=== PATIENT | male | born 1950 | race Caucasian/White ===

== ENCOUNTER → 2017-09-27 | Outpatient (CLI) | payer MEDICARE, OTHER ==
[~2017-09-27] MED LIST: ALTOPREV20 M1 PO; ASPIRIN EC325 M1 PO; ASPIRIN EC81 M1 PO; ASPIRIN325 PO; CATAPRES0.2 MG PO; CENTRUM SILVER1 EAC2 PO; COLACE100 MG PO; COREG6.25 MG PO; COUMADIN 10MG T10 M1 PO; COUMADIN 5 MG TA5 M1 PO; CRESTOR10 MG; CRESTOR10 MG PO; DIABETA 5MG TABL5 MG PO; DILTIAZEM 24HR180 M1 PO; DILTIAZEM ER360 MG PO; FISH OIL 1,001000 M1 PO; HYDRALAZINE HC100 MG PO; IPRAT-ALBUT 0.5-3 ML IH; K-DUR 20 MEQ T20 MEQ PO; KLOR-CON 10 ER10 MEQ PO; LANTUS SUBQ; LASIX 40 MG TAB40 M1 PO; LEVAQUIN 750 M750 MG PO; LEVEMIR SUBQ; LIORESAL 10 MG10 MG; LIPITOR10 MG PO; LORTAB 5-500 T1 EAC1 PO; METOLAZONE 2.52.5 M1 PO; MIRALAX17 GM PO; NEURONTIN 300300 M1; NITROSTAT0.4 MG SUBLING; NORCO 5-325 TA1 EACH PO; NOVOLOG100 UNIT/M SUBQ; POTASSIUM20 PO; PRAVASTATIN SOD20 MG PO; PREDNISONE 10 M10 M1 PO; PRINIVIL40 MG PO; SYMBICORT160 MCG/4. PO; VIBRAMYCIN 100100 M2 PO; VITAMIN B-122000 MCG PO; Warfarin PO
== END ==
LOC: M.CT 13:00
DX: I71.2 Thoracic aortic aneurysm, without rupture (principal); I25.10 Atherosclerotic heart disease of native coronary artery without angina pectoris; K57.30 Diverticulosis of large intestine without perforation or abscess without bleeding; I71.4 Abdominal aortic aneurysm, without rupture; R59.0 Localized enlarged lymph nodes; J98.11 Atelectasis; I70.0 Atherosclerosis of aorta; N20.0 Calculus of kidney; J98.4 Other disorders of lung; N40.0 Benign prostatic hyperplasia without lower urinary tract symptoms; M51.26 Other intervertebral disc displacement, lumbar region; M47.896 Other spondylosis, lumbar region; M25.78 Osteophyte, vertebrae; M48.061 Spinal stenosis, lumbar region without neurogenic claudication; I13.0 Hypertensive heart and chronic kidney disease with heart failure and stage 1 through stage 4 chronic kidney disease, or unspecified chronic kidney disease; N18.3 Chronic kidney disease, stage 3 (moderate); I50.33 Acute on chronic diastolic (congestive) heart failure; E11.22 Type 2 diabetes mellitus with diabetic chronic kidney disease; N17.9 Acute kidney failure, unspecified; J96.22 Acute and chronic respiratory failure with hypercapnia; I48.2 Chronic atrial fibrillation; E87.0 Hyperosmolality and hypernatremia; G47.33 Obstructive sleep apnea (adult) (pediatric); E66.01 Morbid (severe) obesity due to excess calories; Z68.41 Body mass index [BMI] 40.0-44.9, adult; E78.5 Hyperlipidemia, unspecified; E87.6 Hypokalemia; Z95.1 Presence of aortocoronary bypass graft; Z98.890 Other specified postprocedural states; Z86.79 Personal history of other diseases of the circulatory system

== ENCOUNTER → 2019-11-12 | Outpatient (CLI) | payer MEDICARE | LOC: M.ULTRA 09:42 | DX: I99.8 Other disorder of circulatory system (principal); I77.811 Abdominal aortic ectasia ==

== ENCOUNTER 2020-05-17 19:44 | Inpatient (IN) | payer MEDICARE ==
[~2020-05-17] VITALS: Ht 167.6 cm; Wt 118.3 kg
[2020-05-17 19:54] VITALS: BP 119/51
[2020-05-17] MEDS ORDERED: PROAIR HFA8.5 GM INH (20:00)
[2020-05-17] MEDS ORDERED: ALLOPURINOL 10100 M1 PO (20:01)
[2020-05-17] MEDS ORDERED: LIPITOR40 MG PO (20:01)
[2020-05-17] MEDS ORDERED: ANORO ELLIPTA1 EACH INH (20:01)
[2020-05-17] MEDS ORDERED: CLINDAGEL75 ML PO (20:02)
[2020-05-17] MEDS ORDERED: HYDRALAZINE HC100 MG PO (20:03)
[2020-05-17] MEDS ORDERED: MITIGARE0.6 MG PO (20:03)
[2020-05-17] MEDS ORDERED: TOPROL XL100 MG PO (20:03)
[2020-05-17] MEDS ORDERED: LASIX 40 MG TAB40 MG PO (20:03)
[2020-05-17] MEDS ORDERED: LEVEMIR100 UNIT/2 SUBQ (20:04)
[2020-05-17] MEDS ORDERED: METOLAZONE 5 MG5 MG PO (20:04)
[2020-05-17] MEDS ORDERED: JANTOVEN5 MG PO (20:05)
[2020-05-17] MEDS ORDERED: MYRBETRIQ25 MG PO (20:05)
[2020-05-17] MEDS ORDERED: TRAMADOL 50 MG50 MG PO (20:05)
[2020-05-17 21:35] LABS: BE 5.7 mmol/L (-2 to +3); PO2 77.4 mmHg (75.0-100.0); pH 7.357 (7.340-7.450)
[2020-05-17 21:37] LABS: PCO2 59.3 mmHg (35.0-45.0)
[2020-05-17 22:02] LABS: CALCIUM 8.6 mg/dL (8.5-10.1); CREATININE 3.9 mg/dL (0.6-1.3)
[2020-05-17 22:11] LABS: INR ND; PROTIME ND Seconds (9.20-11.50)
[2020-05-17 22:12] LABS: APTT ND Seconds (25.0-31.3)
[2020-05-17 22:13] LABS: ALBUMIN 3.2 g/dL (3.4-5.0); MAGNESIUM 2.6 mg/dL (1.8-2.4); TOTAL BILIRUBIN 0.5 mg/dL (<0.1-1.0); TOTAL PROTEIN 7.5 g/dL (6.4-8.2)
[2020-05-17 23:00] LABS: HEMOGLOBIN 10.6 gm/dL (14.0-18.0); MCH 26.5 pg (26.0-34.0); MCV 82.7 fL (80.0-100.0); MPV 7.8 fl. (7.2-11.1); NUCLEATED RBCS 0 /100WBC; PLATELET COUNT* 213 thou/uL (150-400); RBC 3.99 mil/uL (4.50-6.00); RDW-CV 17.9 % (10.5-14.5); WBC 10.3 thou/uL (4.0-11.0)
[2020-05-17 23:11] LABS: APTT 40.1 Seconds (25.0-31.3); INR 2.1; PROTIME 20.7 Seconds (9.20-11.50)
[2020-05-17 23:23] LABS: ABSOLUTE NEUTROPHILS 8.9 thou/uL (1.6-8.1); PLATELET ESTIMATE ADEQUATE
[2020-05-17 23:24] LABS: ABSOLUTE EOSINOPHILS 0.1 thou/uL (0.0-0.7); ABSOLUTE LYMPHOCYTES 0.9 thou/uL (0.8-5.3); ABSOLUTE MONOCYTES 0.4 thou/uL (0.0-1.2); ANISOCYTOSIS 1+; POLYCHROMASIA Occasional
[2020-05-18] VITALS (8 sets, daily range): BP systolic 114–167; BP diastolic 47–67
[2020-05-18 01:18] LABS: URINE BILIRUBIN NEGATIVE (Negative); URINE BLOOD NEGATIVE (Negative); URINE CLARITY CLEAR; URINE COLOR YELLOW; URINE GLUCOSE-RANDOM NEGATIVE (Negative); URINE KETONES NEGATIVE (Negative); URINE LEUKOCYTES-REFLEX NEGATIVE (Negative); URINE NITRITE-REFLEX NEGATIVE (Negative); URINE PROTEIN 1+ (Negative); URINE UROBILINOGEN 0.2 E.U./dl (0.2-1.0)
--- NOTE | 2020-05-18 08:24 | EKG ---
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
--- NOTE | 2020-05-18 16:07 | 2DMMODE ---
[place] [address] 2 D/M-MODE ECHOCARDIOGRAM Name: JENNYFERLAM Kenny Room: [place] [address] ADM IN [facility]#: [id number] Admission: 05/17/20 Attend Phys: Yrn Martinez Discharge: Date of : 46 Date of Service: 05/18/20 1607 Report #: [id number] THIS REPORT FOR: cc: Carol Soriano Angela Jo RNP Blick, David R. MD [facility] ~ APPROVED REPORT Study performed: 05/18/2020 10:47:53 EXAM: Comprehensive 2D, Doppler, and color-flow Echocardiogram Patient Location: In-Patient Room #: er Status: routine BSA: 2.19 HR: 59 bpm BP: 166/65 mmHg Rhythm: Atrial Fibrillation Other Information Study Quality: Good Indications Dyspnea 2D Dimensions LVOT Diam: 21.21 (18-24mm) LVDd: 45.52 mm PWd: 12.30 (7-11mm) Ascending Ao: 35.50 (22-36mm) LVDs: 28.32 (25-40mm) Aortic Root: 36.90 mm Volumes Left Atrial Volume (Systole) LA ESV Index: 36.10 mL/m2 Aortic Valve AoV Peak Chidi.: 2.10 m/s AO Peak Gr.: 17.68 mmHg LVOT Max P.01 mmHg AO Mean Gr.: 9.92 mmHg LVOT Mean P.94 mmHg LVOT Max V: 1.00 m/s AO V2 VTI: 43.64 cm LVOT Mean V: 0.64 m/s ISAAC (VTI): 1.69 cm2 LVOT V1 VTI: 20.86 cm AI [place]: 2.44 m/s2 [place] [address] 2 D/M-MODE ECHOCARDIOGRAM Name: LAM BURGER Room: [address] IN [facility]#: [id number] Admission: 05/17/20 Attend Phys: Yrn Martinez Discharge: Date of : 46 Date of Service: 05/18/20 1607 Report #: [id number] AI PHT: 372.64 ms Mitral Valve MV Mean Gr.: 2.47 mmHg MV Decel. Time: 199.44 ms MV PHT: 57.84 ms MVA (PHT): 3.80 cm2 TDI Medial E' Chidi.: 0.06 m/s Lateral E' Chidi.: 0.08 m/s Pulmonary Valve PV Peak Chidi.: 0.88 m/s PV Peak Gr.: 3.10 mmHg Left Ventricle The left ventricle is normal size. There is normal LV segmental wall motion. Mild concentric left ventricular hypertrophy. Left ventricular systolic function is normal. The left ventricular ejection fraction is within the normal range. LVEF is 55-60%. This study is not technically sufficient to allow evaluation of the LV diastolic function due to atrial fibrillation. Right Ventricle The right ventricle is normal size. The right ventricular systolic function is normal. Atria Left atrium is mildly dilated. The right atrium size is normal. Aortic Valve Aortic valve is calcified. Trace aortic regurgitation. Mild aortic stenosis. Mitral Valve Moderate mitral annular calcification. There is no mitral valve regurgitation noted. No evidence of mitral valve stenosis. Tricuspid Valve The tricuspid valve is normal in structure. Unable to assess PA pressure. Trace tricuspid regurgitation. Pulmonic Valve The pulmonary valve is normal in structure. There is no pulmonic [place] [address] 2 D/M-MODE ECHOCARDIOGRAM Name: JENNYFERLAM Kenny Room: [address] IN [facility]#: [id number] Admission: 05/17/20 Attend Phys: Yrn Martinez Discharge: Date of : 46 Date of Service: 05/18/20 1607 Report #: [id number] Great Vessels The aortic root is normal in size. IVC is normal in size and collapses >50% with inspiration. Pericardium There is no pericardial effusion. <Conclusion> Mild concentric left ventricular hypertrophy. LVEF is 55-60%. Left atrium is mildly dilated. Mild aortic stenosis. <ELECTRONICALLY SIGNED> By: Miguel An MD, FACC 05/18/201606 06 06 Miguel An MD, FACC /INF
[2020-05-18] MEDS ORDERED: DERMACINRX5000 UNIT PO (18:51)
[2020-05-18] MEDS ORDERED: TOPROL XL100 MG PO (18:54)
[2020-05-19] VITALS: BP 137/53
[2020-05-19 04:00] VITALS: BP 122/82
[2020-05-19 04:56] LABS: HEMATOCRIT 30.2 % (42.0-52.0); HEMOGLOBIN 9.7 gm/dL (14.0-18.0); MCH 26.5 pg (26.0-34.0); MCHC 32.2 g/dL (28.0-37.0); MCV 82.5 fL (80.0-100.0); MPV 8.5 fl. (7.2-11.1); RBC 3.66 mil/uL (4.50-6.00); WBC 9.5 thou/uL (4.0-11.0)
[2020-05-19 05:16] LABS: INR 1.8; PROTIME 18.4 Seconds (9.20-11.50)
[2020-05-19 05:23] LABS: ALBUMIN 3.2 g/dL (3.4-5.0); CALCIUM 8.4 mg/dL (8.5-10.1); CREATININE 3.8 mg/dL (0.6-1.3); MAGNESIUM 2.3 mg/dL (1.8-2.4); TOTAL BILIRUBIN 0.5 mg/dL (<0.1-1.0); TOTAL PROTEIN 7.3 g/dL (6.4-8.2)
[2020-05-19 08:00] VITALS: BP 128/50
--- NOTE | 2020-05-19 09:50 | CON ---
[address] [address] CONSULTATION Name: BURGERLAM Cox Room: [address] IN .R.#: [id number] Admission: 05/17/20 Attend Phys: Yrn Osei, Discharge: Date of : 46 Report #: [id number] THIS REPORT FOR: //name// cc: Carol Soriano Angela Jo RNP ~ THIS REPORT FOR: //name// CC: Carol Osei DATE OF SERVICE: 05/18/2020 REASON FOR CONSULTATION: Chronic kidney disease. HISTORY OF PRESENT ILLNESS: The patient is a 69-year-old gentleman, very well known to me, follows with me in my office. He has chronic kidney disease stage 4. His creatinine around 3. This is his baseline. The patient presents with complaints of shortness of breath. He was seen by me couple of days ago. He was fluid overloaded. I increased his Lasix. Continue his metolazone. He is on Lasix 40 mg twice a day and metolazone 3 times a week, but despite of that he is still fluid overloaded and came with CHF, seen by requirements manager. Continue with metolazone and I will defer to Cardiology, on IV Lasix. He is on lisinopril. His creatinine is up to 3.9 from 2.7, so I will stop his lisinopril. He also has a history of atrial fibrillation, hyperlipidemia, CHF, diabetes mellitus type 2 and complex cyst in the left kidney, possibly cancer, he was referred to Urology multiple times, but has not seen an urologist yet. SOCIAL HISTORY: No tobacco or alcohol abuse. He used to smoke, but quit several years ago. He is , has two children. FAMILY HISTORY: Positive for CHF in mother and coronary artery disease in father. Father at age of 46 from a heart attack. REVIEW OF SYSTEMS: Positive for shortness of breath, , nocturia lower extremity edema. Rest of the systems negative. PHYSICAL EXAMINATION: GENERAL: Awake, alert, and oriented. He is a chronically ill-looking gentleman, overweight. VITAL SIGNS: Reviewed. NECK: Fatty. JVD is elevated. He has some bruises on the skin. CARDIOVASCULAR: Irregular rate. No rubs. ABDOMEN: Obese, soft. LOWER EXTREMITIES: 3+ [place] [address] CONSULTATION Name: LAM BURGER Room: [address]#: [id number] Admission: 05/17/20 Attend Phys: Yrn Osei, Discharge: Date of : 46 Report #: [id number] ASSESSMENT: 1. Fluid overload, CHF. Cardiology on the case, on IV Lasix. 2. Acute kidney injury on top of the chronic kidney disease, could be due to under perfusion of the kidney due to of fluid retention. I would like to stop his lisinopril for now. 3. Chronic kidney disease stage 4. 4. Chronic obstructive pulmonary disease. 5. Diabetes mellitus type 2. 6. Complex renal cyst. PLAN: 1. Diurese. 2. Follow labs. 3. He might require dialysis. <ELECTRONICALLY SIGNED> By: Camron Ramirez MD 05/19/20 0950 1129 1822Alexkayleigh Ramirez MD /[facility]
[2020-05-19 12:21] VITALS: BP 119/55
[2020-05-19 16:00] VITALS: BP 143/67
[2020-05-19 20:00] VITALS: BP 151/74
[2020-05-20] VITALS: BP 144/83
[2020-05-20 04:29] VITALS: BP 148/85
[2020-05-20 05:13] LABS: HEMATOCRIT 28.2 % (42.0-52.0); HEMOGLOBIN 9.1 gm/dL (14.0-18.0); MCHC 32.5 g/dL (28.0-37.0); MCV 83.1 fL (80.0-100.0); MPV 8.2 fl. (7.2-11.1); RBC 3.39 mil/uL (4.50-6.00); WBC 7.7 thou/uL (4.0-11.0)
[2020-05-20 05:22] LABS: INR 1.6; PROTIME 15.8 Seconds (9.20-11.50)
[2020-05-20 05:47] LABS: CREATININE 4.2 mg/dL (0.6-1.3); POTASSIUM 3.5 mmol/L (3.5-5.1); TOTAL BILIRUBIN 0.4 mg/dL (<0.1-1.0); TOTAL PROTEIN 6.4 g/dL (6.4-8.2)
[2020-05-20 07:30] VITALS: BP 146/74
[2020-05-20 11:30] VITALS: BP 138/58
[2020-05-20 14:38] LABS: BE 2.2 mmol/L (-2 to +3); PO2 68.8 mmHg (75.0-100.0); pH 7.313 (7.340-7.450)
[2020-05-20 14:42] LABS: PCO2 59.4 mmHg (35.0-45.0)
[2020-05-20 16:19] LABS: CALCIUM 8.2 mg/dL (8.5-10.1); POTASSIUM 3.7 mmol/L (3.5-5.1)
[2020-05-20 20:00] VITALS: BP 146/68
[2020-05-21] VITALS (29 sets, daily range): BP systolic 116–153; BP diastolic 47–76
[2020-05-21 05:18] LABS: HEMATOCRIT 29.5 % (42.0-52.0); HEMOGLOBIN 9.3 gm/dL (14.0-18.0); MCH 26.5 pg (26.0-34.0); MCHC 31.4 g/dL (28.0-37.0); MCV 84.2 fL (80.0-100.0); MPV 8.3 fl. (7.2-11.1); RBC 3.51 mil/uL (4.50-6.00); RDW-CV 17.9 % (10.5-14.5); WBC 8.5 thou/uL (4.0-11.0)
[2020-05-21 05:33] LABS: INR 1.5; PROTIME 15.6 Seconds (9.20-11.50)
[2020-05-21 05:39] LABS: ALBUMIN 3.1 g/dL (3.4-5.0); CALCIUM 8.5 mg/dL (8.5-10.1); CREATININE 4.3 mg/dL (0.6-1.3); MAGNESIUM 2.4 mg/dL (1.8-2.4); POTASSIUM 4.2 mmol/L (3.5-5.1); TOTAL BILIRUBIN 0.4 mg/dL (<0.1-1.0); TOTAL PROTEIN 7.2 g/dL (6.4-8.2)
[2020-05-21 10:17] LABS: PO2 65.5 mmHg (75.0-100.0); pH 7.423 (7.340-7.450)
[2020-05-21 10:26] LABS: PCO2 52.6 mmHg (35.0-45.0)
[2020-05-21 15:06] LABS: BE 6.3 mmol/L (-2 to +3); PCO2 41.4 mmHg (35.0-45.0); PO2 102.1 mmHg (75.0-100.0); pH 7.482 (7.340-7.450)
[2020-05-22] VITALS (46 sets, daily range): BP systolic 67–139; BP diastolic 22–69
[2020-05-22 04:25] LABS: HEMATOCRIT 30.7 % (42.0-52.0); HEMOGLOBIN 9.9 gm/dL (14.0-18.0); MCH 26.4 pg (26.0-34.0); MCHC 32.3 g/dL (28.0-37.0); MCV 81.8 fL (80.0-100.0); MPV 8.1 fl. (7.2-11.1); RBC 3.75 mil/uL (4.50-6.00); RDW-CV 17.9 % (10.5-14.5); WBC 9.4 thou/uL (4.0-11.0)
[2020-05-22 04:42] LABS: INR 1.9; PROTIME 18.9 Seconds (9.20-11.50)
[2020-05-22 04:43] LABS: CALCIUM 8.9 mg/dL (8.5-10.1); PHOSPHORUS* 2.8 mg/dL (2.5-4.9)
[2020-05-22 04:44] LABS: CREATININE 3.3 mg/dL (0.6-1.3); POTASSIUM 3.1 mmol/L (3.5-5.1)
[2020-05-22 10:49] LABS: PCO2 37.5 mmHg (35.0-45.0); PO2 111.1 mmHg (75.0-100.0); pH 7.496 (7.340-7.450)
[2020-05-22 22:06] LABS: HEPATITIS B SURFACE AG Negative (Negative)
[2020-05-23] VITALS (37 sets, daily range): BP systolic 105–175; BP diastolic 48–92
[2020-05-23 04:00] LABS: HEMATOCRIT 30.9 % (42.0-52.0); HEMOGLOBIN 9.8 gm/dL (14.0-18.0); MCH 26.1 pg (26.0-34.0); MCHC 31.9 g/dL (28.0-37.0); MPV 7.8 fl. (7.2-11.1); RBC 3.77 mil/uL (4.50-6.00); RDW-CV 17.8 % (10.5-14.5)
[2020-05-23 04:32] LABS: ALBUMIN 2.8 g/dL (3.4-5.0); CALCIUM 8.7 mg/dL (8.5-10.1); CREATININE 3.6 mg/dL (0.6-1.3); POTASSIUM 3.4 mmol/L (3.5-5.1); TOTAL BILIRUBIN 0.5 mg/dL (<0.1-1.0); TOTAL PROTEIN 6.9 g/dL (6.4-8.2)
[2020-05-23 05:30] LABS: BE 5.1 mmol/L (-2 to +3); PO2 69.8 mmHg (75.0-100.0)
[2020-05-23 05:50] LABS: PROTIME 20.2 Seconds (9.20-11.50)
--- NOTE | 2020-05-23 09:52 | EKG ---
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
[2020-05-23 12:41] LABS: BE 3.9 mmol/L (-2 to +3); PCO2 44.8 mmHg (35.0-45.0); pH 7.427 (7.340-7.450)
[2020-05-24] VITALS (22 sets, daily range): BP systolic 110–161; BP diastolic 44–80
[2020-05-24 03:51] LABS: INR 2.1; PROTIME 20.7 Seconds (9.20-11.50)
[2020-05-24 03:54] LABS: PHOSPHORUS* 5.8 mg/dL (2.5-4.9)
[2020-05-24 04:09] LABS: ABSOLUTE BASOPHILS 0.1 thou/uL (0.0-0.2); ABSOLUTE EOSINOPHILS 0.2 thou/uL (0.0-0.7); ABSOLUTE LYMPHOCYTES 1.2 thou/uL (0.8-5.3); ABSOLUTE MONOCYTES 1.4 thou/uL (0.0-1.2); ABSOLUTE NEUTROPHILS 11.6 thou/uL (1.6-8.1); BASOPHILS 0.6 %; EOSINOPHILS 1.4 %; HEMATOCRIT 35.5 % (42.0-52.0); HEMOGLOBIN 11.4 gm/dL (14.0-18.0); LYMPHOCYTES 8.2 %; MCH 26.1 pg (26.0-34.0); MCV 81.8 fL (80.0-100.0); MONOCYTES 9.6 %; MPV 8.2 fl. (7.2-11.1); NUCLEATED RBCS 0 /100WBC; PLATELET COUNT* 201 thou/uL (150-400); POLYS 80.2 %; RBC 4.35 mil/uL (4.50-6.00); RDW-CV 18.6 % (10.5-14.5); WBC 14.5 thou/uL (4.0-11.0)
[2020-05-24 05:19] LABS: ALBUMIN 3.3 g/dL (3.4-5.0); CALCIUM 8.9 mg/dL (8.5-10.1); CREATININE 3.5 mg/dL (0.6-1.3); MAGNESIUM 2.2 mg/dL (1.8-2.4); TOTAL BILIRUBIN 0.5 mg/dL (<0.1-1.0); TOTAL PROTEIN 7.4 g/dL (6.4-8.2)
[2020-05-25] VITALS (19 sets, daily range): BP systolic 73–138; BP diastolic 37–73
[2020-05-25 04:06] LABS: ABSOLUTE BASOPHILS 0.2 thou/uL (0.0-0.2); ABSOLUTE EOSINOPHILS 0.5 thou/uL (0.0-0.7); ABSOLUTE LYMPHOCYTES 1.2 thou/uL (0.8-5.3); ABSOLUTE MONOCYTES 1.1 thou/uL (0.0-1.2); BASOPHILS 1.4 %; EOSINOPHILS 3.7 %; HEMATOCRIT 32.8 % (42.0-52.0); HEMOGLOBIN 10.4 gm/dL (14.0-18.0); LYMPHOCYTES 9.5 %; MCH 26.2 pg (26.0-34.0); MCHC 31.7 g/dL (28.0-37.0); MCV 82.8 fL (80.0-100.0); MONOCYTES 8.2 %; MPV 7.6 fl. (7.2-11.1); NUCLEATED RBCS 0 /100WBC; PLATELET COUNT* 182 thou/uL (150-400); POLYS 77.2 %; RBC 3.97 mil/uL (4.50-6.00); RDW-CV 18.3 % (10.5-14.5); WBC 12.9 thou/uL (4.0-11.0)
[2020-05-25 04:25] LABS: INR 2.8; PROTIME 28.1 Seconds (9.20-11.50)
[2020-05-25 04:32] LABS: CALCIUM 8.9 mg/dL (8.5-10.1); MAGNESIUM 2.3 mg/dL (1.8-2.4); PHOSPHORUS* 6.7 mg/dL (2.5-4.9); POTASSIUM 3.8 mmol/L (3.5-5.1)
--- NOTE | 2020-05-25 12:08 | EEG ---
[address] [address] EEG STUDY REPORT Name: LAM BURGER Room: [address] IN ..#: [id number] Admission: 05/17/20 Attend Phys: Yrn Osei, Discharge: Date of : 46 Report #: [id number] THIS REPORT FOR: //name// CC: Carol Osei DATE OF SERVICE: 05/20/2020 This patient is being evaluated for tremor. This patient also has respiratory difficulty. EEG is being done to evaluate the patient for the possibility of encephalopathy or seizure. EEG was done by placing the electrode by standard 10-20 system of electrode placement. Both referential and sequential montages were used for recording. Background activity in this patient is about 7-8 Hz and 25 microvolt. Moderate amount of artifact is present. Photic stimulation is unremarkable. Throughout the record, no active epileptiform activity was noticed. IMPRESSION: This is an abnormal EEG because it is slow and poorly formed. That is a nonspecific finding, which can occur with encephalopathy, effect of psychotropic medication, dementia, etc. No active epileptiform activity was noticed during this record. Thank you very much for this referral. <ELECTRONICALLY SIGNED> By: Enzo Mendez MD 05/25/20 1208 1510 1519Enzo Mendez MD /nt
--- NOTE | 2020-05-25 12:08 | EEG ---
[facility] [address] [place] [address] EEG STUDY REPORT Name: BURGERLAM Cox Room: [address] IN .R.#: [id number] Admission: 05/17/20 Attend Phys: Yrn Osei, Discharge: Date of : 46 Report #: [id number] THIS REPORT FOR: //name// CC: Carol Osei DATE OF SERVICE: 05/21/2020 This patient's EEG was done and compared with one yesterday. EEG was done by placing the electrode by standard 10-20 system of electrode placement. Both referential and sequential montages were used for recording. Background activity is pretty disorganized and poorly formed. It is about 3 Hz and 15 microvolt. Photic stimulation is unremarkable. IMPRESSION: This is a severely abnormal EEG because it is very disorganized and poorly formed. There is a pronounced and distinct deterioration since yesterday. That can be because of medications including propofol, but that can also be because the patient has developed pretty significant encephalopathy since that time. Repeat EEG will be necessary to further evaluate the patient in that regard. Thank you very much for the referral. <ELECTRONICALLY SIGNED> By: Enzo Mendez MD 05/25/20 1208 1517 1522Pbiju Mendez MD /nt
[2020-05-26] VITALS: BP 108/66
[2020-05-26 04:00] VITALS: BP 128/43
[2020-05-26 05:37] LABS: ABSOLUTE BASOPHILS 0.1 thou/uL (0.0-0.2); ABSOLUTE EOSINOPHILS 0.4 thou/uL (0.0-0.7); ABSOLUTE LYMPHOCYTES 1.3 thou/uL (0.8-5.3); ABSOLUTE NEUTROPHILS 8.1 thou/uL (1.6-8.1); BASOPHILS 0.7 %; EOSINOPHILS 4.1 %; HEMATOCRIT 32.9 % (42.0-52.0); HEMOGLOBIN 10.7 gm/dL (14.0-18.0); LYMPHOCYTES 11.8 %; MCH 26.8 pg (26.0-34.0); MCHC 32.4 g/dL (28.0-37.0); MCV 82.7 fL (80.0-100.0); MONOCYTES 9.5 %; NUCLEATED RBCS 0 /100WBC; PLATELET COUNT* 168 thou/uL (150-400); POLYS 73.9 %; RBC 3.98 mil/uL (4.50-6.00); RDW-CV 17.9 % (10.5-14.5); WBC 10.9 thou/uL (4.0-11.0)
[2020-05-26 06:12] LABS: ALBUMIN 2.9 g/dL (3.4-5.0); CALCIUM 8.4 mg/dL (8.5-10.1); CREATININE 3.5 mg/dL (0.6-1.3); MAGNESIUM 2.1 mg/dL (1.8-2.4); PHOSPHORUS* 5.2 mg/dL (2.5-4.9); POTASSIUM 3.5 mmol/L (3.5-5.1); TOTAL BILIRUBIN 0.4 mg/dL (<0.1-1.0); TOTAL PROTEIN 7.2 g/dL (6.4-8.2)
[2020-05-26 07:30] VITALS: BP 147/36
[2020-05-26 09:19] LABS: INR 2.1; PROTIME 21.2 Seconds (9.20-11.50)
[2020-05-26 12:00] VITALS: BP 112/59
[2020-05-26 16:52] VITALS: BP 112/58
[2020-05-26 20:10] VITALS: BP 103/58
[2020-05-27] VITALS: BP 108/65
[2020-05-27 04:57] LABS: ABSOLUTE BASOPHILS 0.1 thou/uL (0.0-0.2); ABSOLUTE EOSINOPHILS 0.5 thou/uL (0.0-0.7); ABSOLUTE LYMPHOCYTES 1.2 thou/uL (0.8-5.3); ABSOLUTE NEUTROPHILS 7.1 thou/uL (1.6-8.1); BASOPHILS 0.7 %; EOSINOPHILS 5.3 %; HEMATOCRIT 29.8 % (42.0-52.0); HEMOGLOBIN 9.8 gm/dL (14.0-18.0); LYMPHOCYTES 12.4 %; MCH 26.9 pg (26.0-34.0); MCHC 32.8 g/dL (28.0-37.0); MONOCYTES 10.1 %; MPV 7.9 fl. (7.2-11.1); NUCLEATED RBCS 0 /100WBC; PLATELET COUNT* 163 thou/uL (150-400); POLYS 71.5 %; RBC 3.63 mil/uL (4.50-6.00); RDW-CV 17.7 % (10.5-14.5); WBC 9.9 thou/uL (4.0-11.0)
[2020-05-27 05:07] LABS: CREATININE 3.8 mg/dL (0.6-1.3); MAGNESIUM 2.1 mg/dL (1.8-2.4); PHOSPHORUS* 5.1 mg/dL (2.5-4.9); POTASSIUM 3.3 mmol/L (3.5-5.1)
[2020-05-27 07:55] VITALS: BP 145/63
[2020-05-27 15:51] VITALS: BP 134/70
[2020-05-27 19:40] VITALS: BP 122/64
[2020-05-28] VITALS: BP 98/59
[2020-05-28 04:00] VITALS: BP 107/59
[2020-05-28 04:32] LABS: ABSOLUTE BASOPHILS 0.1 thou/uL (0.0-0.2); ABSOLUTE EOSINOPHILS 0.4 thou/uL (0.0-0.7); ABSOLUTE LYMPHOCYTES 1.4 thou/uL (0.8-5.3); ABSOLUTE MONOCYTES 1.2 thou/uL (0.0-1.2); ABSOLUTE NEUTROPHILS 6.9 thou/uL (1.6-8.1); EOSINOPHILS 3.8 %; HEMATOCRIT 31.9 % (42.0-52.0); HEMOGLOBIN 10.6 gm/dL (14.0-18.0); LYMPHOCYTES 13.6 %; MCH 27.2 pg (26.0-34.0); MCHC 33.1 g/dL (28.0-37.0); MCV 82.1 fL (80.0-100.0); MONOCYTES 12.4 %; MPV 8.2 fl. (7.2-11.1); NUCLEATED RBCS 0 /100WBC; PLATELET COUNT* 175 thou/uL (150-400); POLYS 69.2 %; RBC 3.88 mil/uL (4.50-6.00); RDW-CV 17.9 % (10.5-14.5)
[2020-05-28 04:56] LABS: CALCIUM 8.2 mg/dL (8.5-10.1); CREATININE 3.5 mg/dL (0.6-1.3); POTASSIUM 3.8 mmol/L (3.5-5.1)
[2020-05-28 13:53] VITALS: BP 109/55
[2020-05-28 16:00] VITALS: BP 100/50
[2020-05-28 20:00] VITALS: BP 100/61
[2020-05-29] VITALS: BP 115/59
[2020-05-29 03:55] VITALS: BP 109/58
[2020-05-29 05:00] LABS: ALBUMIN 2.9 g/dL (3.4-5.0); CALCIUM 8.7 mg/dL (8.5-10.1); PHOSPHORUS* 5.1 mg/dL (2.5-4.9); POTASSIUM 3.9 mmol/L (3.5-5.1)
[2020-05-29 05:14] LABS: CREATININE 4.5 mg/dL (0.6-1.3)
[2020-05-29 08:10] VITALS: BP 100/67
[2020-05-29 12:00] VITALS: BP 141/66
[2020-05-29 17:30] VITALS: BP 131/64
[2020-05-29 19:40] VITALS: BP 116/59
[2020-05-30 00:37] VITALS: BP 116/64
[2020-05-30 04:00] VITALS: BP 123/40
[2020-05-30 05:06] LABS: ALBUMIN 2.8 g/dL (3.4-5.0); CALCIUM 8.3 mg/dL (8.5-10.1); CREATININE 5.3 mg/dL (0.6-1.3); PHOSPHORUS* 4.6 mg/dL (2.5-4.9); POTASSIUM 3.9 mmol/L (3.5-5.1)
[2020-05-30 07:30] VITALS: BP 108/58
[2020-05-30 17:14] VITALS: BP 146/61
[2020-05-30 20:00] VITALS: BP 124/61
[2020-05-31] VITALS (8 sets, daily range): BP systolic 97–142; BP diastolic 40–80
[2020-05-31 04:39] LABS: ABSOLUTE BASOPHILS 0.1 thou/uL (0.0-0.2); ABSOLUTE EOSINOPHILS 0.2 thou/uL (0.0-0.7); ABSOLUTE LYMPHOCYTES 0.6 thou/uL (0.8-5.3); ABSOLUTE MONOCYTES 0.7 thou/uL (0.0-1.2); ABSOLUTE NEUTROPHILS 7.3 thou/uL (1.6-8.1); BASOPHILS 0.8 %; EOSINOPHILS 1.7 %; HEMATOCRIT 35.2 % (42.0-52.0); HEMOGLOBIN 11.4 gm/dL (14.0-18.0); MCH 26.8 pg (26.0-34.0); MCHC 32.5 g/dL (28.0-37.0); MCV 82.5 fL (80.0-100.0); MONOCYTES 8.1 %; MPV 8.2 fl. (7.2-11.1); NUCLEATED RBCS 0 /100WBC; PLATELET COUNT* 194 thou/uL (150-400); POLYS 82.4 %; RBC 4.26 mil/uL (4.50-6.00); RDW-CV 18.2 % (10.5-14.5); WBC 8.9 thou/uL (4.0-11.0)
[2020-05-31 05:05] LABS: ALBUMIN 3.3 g/dL (3.4-5.0); CALCIUM 8.8 mg/dL (8.5-10.1); TOTAL BILIRUBIN 0.6 mg/dL (<0.1-1.0); TOTAL PROTEIN 7.8 g/dL (6.4-8.2)
[2020-05-31 05:18] LABS: CREATININE 4.2 mg/dL (0.6-1.3); POTASSIUM 5.1 mmol/L (3.5-5.1)
[2020-06-01 00:27] VITALS: BP 97/61
[2020-06-01 04:00] VITALS: BP 115/52
[2020-06-01 07:49] VITALS: BP 135/78
[2020-06-01 12:29] VITALS: BP 124/64
[2020-06-01 16:09] VITALS: BP 115/54
[2020-06-01 20:20] VITALS: BP 95/43
[2020-06-02] VITALS: BP 108/46
[2020-06-02 04:00] VITALS: BP 105/58
[2020-06-02 08:00] VITALS: BP 138/64
[2020-06-02] MEDS ORDERED: HYDRALAZINE 2525 MG PO (09:07)
[2020-06-02] MEDS ORDERED: BUMEX2 MG PO (09:07)
[2020-06-02] MEDS ORDERED: ASPIR 8181 MG PO (09:07)
[2020-06-02] MEDS ORDERED: NEURONTIN 300M300 M2 PO (09:07)
[2020-06-02] MEDS ORDERED: RENVELA800 MG PO (09:07)
[2020-06-02 12:01] VITALS: BP 122/57
[2020-06-02 16:12] VITALS: BP 98/47
[2020-06-02 20:00] VITALS: BP 120/76
[2020-06-03] VITALS: BP 128/68
[2020-06-03 04:00] VITALS: BP 116/52
[2020-06-03 05:11] LABS: INR 1.1; PROTIME 10.9 Seconds (9.20-11.50)
[2020-06-03 08:00] VITALS: BP 115/49
== END 2020-06-03 18:22 | DRG 208 ==
LOC: M.ERS 19:44 → M.ICU 23:26 → M.TBA-ER 23:26 → M.2W 23:26 → M.ICU 05-21 09:24 → M.2W 05-25 18:28
PROVIDERS: Internal Medicine; Internal Medicine Critical Care Medicine; Internal Medicine Nephrology; Pediatrics; Personal Emergency Response Attendant; ADMIT Family Medicine; ATTEND Family Medicine
PROC: 5A09357 Assistance with Respiratory Ventilation, Less than 24 Consecutive Hours, Continuous Positive Airway Pressure (ICD-10-PCS; principal; 2020-05-18)
PROC: 5A09357 Assistance with Respiratory Ventilation, Less than 24 Consecutive Hours, Continuous Positive Airway Pressure (ICD-10-PCS; 2020-05-20)
PROC: 5A1945Z Respiratory Ventilation, 24-96 Consecutive Hours (ICD-10-PCS; 2020-05-21)
PROC: 0BH17EZ Insertion of Endotracheal Airway into Trachea, Via Natural or Artificial Opening (ICD-10-PCS; 2020-05-21)
PROC: 02HV33Z Insertion of Infusion Device into Superior Vena Cava, Percutaneous Approach (ICD-10-PCS; 2020-05-23)
PROC: B548ZZA Ultrasonography of Superior Vena Cava, Guidance (ICD-10-PCS; 2020-05-23)
PROC: B5181ZA Fluoroscopy of Superior Vena Cava using Low Osmolar Contrast, Guidance (ICD-10-PCS; 2020-05-23)
PROC: 5A09357 Assistance with Respiratory Ventilation, Less than 24 Consecutive Hours, Continuous Positive Airway Pressure (ICD-10-PCS; 2020-05-23)
PROC: 5A09357 Assistance with Respiratory Ventilation, Less than 24 Consecutive Hours, Continuous Positive Airway Pressure (ICD-10-PCS; 2020-05-24)
PROC: 5A09357 Assistance with Respiratory Ventilation, Less than 24 Consecutive Hours, Continuous Positive Airway Pressure (ICD-10-PCS; 2020-05-25)
PROC: 5A09357 Assistance with Respiratory Ventilation, Less than 24 Consecutive Hours, Continuous Positive Airway Pressure (ICD-10-PCS; 2020-05-26)
PROC: 5A09357 Assistance with Respiratory Ventilation, Less than 24 Consecutive Hours, Continuous Positive Airway Pressure (ICD-10-PCS; 2020-05-27)
PROC: 5A09357 Assistance with Respiratory Ventilation, Less than 24 Consecutive Hours, Continuous Positive Airway Pressure (ICD-10-PCS; 2020-05-28)
PROC: 5A09357 Assistance with Respiratory Ventilation, Less than 24 Consecutive Hours, Continuous Positive Airway Pressure (ICD-10-PCS; 2020-05-29)
PROC: 5A09357 Assistance with Respiratory Ventilation, Less than 24 Consecutive Hours, Continuous Positive Airway Pressure (ICD-10-PCS; 2020-05-30)
PROC: 0JH63XZ Insertion of Tunneled Vascular Access Device into Chest Subcutaneous Tissue and Fascia, Percutaneous Approach (ICD-10-PCS; 2020-05-31)
PROC: B5181ZA Fluoroscopy of Superior Vena Cava using Low Osmolar Contrast, Guidance (ICD-10-PCS; 2020-05-31)
PROC: B548ZZA Ultrasonography of Superior Vena Cava, Guidance (ICD-10-PCS; 2020-05-31)
PROC: 5A09357 Assistance with Respiratory Ventilation, Less than 24 Consecutive Hours, Continuous Positive Airway Pressure (ICD-10-PCS; 2020-05-31)
PROC: 02HV33Z Insertion of Infusion Device into Superior Vena Cava, Percutaneous Approach (ICD-10-PCS; 2020-05-31)
PROC: 5A09357 Assistance with Respiratory Ventilation, Less than 24 Consecutive Hours, Continuous Positive Airway Pressure (ICD-10-PCS; 2020-06-01)
PROC: 5A09357 Assistance with Respiratory Ventilation, Less than 24 Consecutive Hours, Continuous Positive Airway Pressure (ICD-10-PCS; 2020-06-02)
DX: J96.22 Acute and chronic respiratory failure with hypercapnia (principal); I50.33 Acute on chronic diastolic (congestive) heart failure; I13.0 Hypertensive heart and chronic kidney disease with heart failure and stage 1 through stage 4 chronic kidney disease, or unspecified chronic kidney disease; N17.9 Acute kidney failure, unspecified; N18.4 Chronic kidney disease, stage 4 (severe); I48.20 Chronic atrial fibrillation, unspecified; D68.59 Other primary thrombophilia; L03.116 Cellulitis of left lower limb; J91.8 Pleural effusion in other conditions classified elsewhere; J96.21 Acute and chronic respiratory failure with hypoxia; Z20.828 Contact with and (suspected) exposure to other viral communicable diseases; J44.9 Chronic obstructive pulmonary disease, unspecified; E11.22 Type 2 diabetes mellitus with diabetic chronic kidney disease; I25.10 Atherosclerotic heart disease of native coronary artery without angina pectoris; E78.5 Hyperlipidemia, unspecified; N28.89 Other specified disorders of kidney and ureter; I71.4 Abdominal aortic aneurysm, without rupture; Z96.653 Presence of artificial knee joint, bilateral; I71.2 Thoracic aortic aneurysm, without rupture; I65.29 Occlusion and stenosis of unspecified carotid artery; N28.1 Cyst of kidney, acquired; G47.33 Obstructive sleep apnea (adult) (pediatric); D64.9 Anemia, unspecified; Z79.82 Long term (current) use of aspirin; Z90.49 Acquired absence of other specified parts of digestive tract; Z95.5 Presence of coronary angioplasty implant and graft; Z98.42 Cataract extraction status, left eye; Z87.891 Personal history of nicotine dependence; Z82.49 Family history of ischemic heart disease and other diseases of the circulatory system; Z79.899 Other long term (current) drug therapy; Z95.1 Presence of aortocoronary bypass graft

== ENCOUNTER 2020-06-03 16:06 | Inpatient (IN) | payer MEDICARE ==
[~2020-06-03] VITALS: Ht 167.6 cm; Wt 103.6 kg
[~2020-06-03 16:06] MED LIST changes: +ALLOPURINOL 10100 M1 PO; +ANORO ELLIPTA1 EACH INH; +ASPIR 8181 MG PO; +BUMEX2 MG PO; +CLINDAGEL75 ML PO; +DERMACINRX5000 UNIT PO; +HYDRALAZINE 2525 MG PO; +JANTOVEN5 MG PO; +LASIX 40 MG TAB40 MG PO; +LEVEMIR100 UNIT/2 SUBQ; +LIPITOR40 MG PO; +METOLAZONE 5 MG5 MG PO; +MITIGARE0.6 MG PO; +MYRBETRIQ25 MG PO; +NEURONTIN 300M300 M2 PO; +PROAIR HFA8.5 GM INH; +RENVELA800 MG PO; +TOPROL XL100 MG PO; +TRAMADOL 50 MG50 MG PO
[2020-06-03 18:35] VITALS: BP 133/58
[2020-06-04 04:05] LABS: ABSOLUTE BASOPHILS 0.1 thou/uL (0.0-0.2); ABSOLUTE EOSINOPHILS 0.2 thou/uL (0.0-0.7); ABSOLUTE LYMPHOCYTES 1.4 thou/uL (0.8-5.3); ABSOLUTE NEUTROPHILS 7.6 thou/uL (1.6-8.1); BASOPHILS 0.8 %; EOSINOPHILS 2.1 %; HEMOGLOBIN 11.1 gm/dL (14.0-18.0); LYMPHOCYTES 13.8 %; MCH 26.9 pg (26.0-34.0); MCHC 32.7 g/dL (28.0-37.0); MCV 82.4 fL (80.0-100.0); MONOCYTES 9.6 %; MPV 7.4 fl. (7.2-11.1); NUCLEATED RBCS 0 /100WBC; PLATELET COUNT* 191 thou/uL (150-400); POLYS 73.7 %; RBC 4.12 mil/uL (4.50-6.00); RDW-CV 18.6 % (10.5-14.5); WBC 10.3 thou/uL (4.0-11.0)
[2020-06-04 04:16] LABS: CALCIUM 9.3 mg/dL (8.5-10.1); CREATININE 5.8 mg/dL (0.6-1.3); POTASSIUM 4.7 mmol/L (3.5-5.1)
[2020-06-04 07:54] VITALS: BP 129/66
[2020-06-04 11:52] LABS: INR 1.1; PROTIME 11.4 Seconds (9.20-11.50)
[2020-06-04 20:00] VITALS: BP 121/62
[2020-06-05 07:55] VITALS: BP 83/45
[2020-06-05 08:07] LABS: INR 1.2; PROTIME 12.7 Seconds (9.20-11.50)
[2020-06-05 10:00] VITALS: BP 116/57
[2020-06-05 12:00] VITALS: BP 114/62
[2020-06-05 20:00] VITALS: BP 108/47
[2020-06-06 04:35] LABS: HEMATOCRIT 34.8 % (42.0-52.0); HEMOGLOBIN 11.3 gm/dL (14.0-18.0); MCH 26.9 pg (26.0-34.0); MCHC 32.6 g/dL (28.0-37.0); MCV 82.7 fL (80.0-100.0); MPV 7.7 fl. (7.2-11.1); RBC 4.21 mil/uL (4.50-6.00); RDW-CV 18.7 % (10.5-14.5); WBC 9.9 thou/uL (4.0-11.0)
[2020-06-06 04:37] LABS: INR 1.3; PROTIME 13.2 Seconds (9.20-11.50)
[2020-06-06 04:38] LABS: CALCIUM 8.8 mg/dL (8.5-10.1); MAGNESIUM 2.9 mg/dL (1.8-2.4); POTASSIUM 4.6 mmol/L (3.5-5.1)
[2020-06-06 04:48] LABS: CREATININE 8.6 mg/dL (0.6-1.3)
[2020-06-06 07:19] VITALS: BP 140/50
[2020-06-06 19:30] VITALS: BP 142/51
[2020-06-07 05:01] LABS: CALCIUM 8.6 mg/dL (8.5-10.1); PHOSPHORUS* 5.6 mg/dL (2.5-4.9); POTASSIUM 4.5 mmol/L (3.5-5.1)
[2020-06-07 05:16] LABS: CREATININE 10.5 mg/dL (0.6-1.3)
[2020-06-07 08:00] VITALS: BP 114/64
[2020-06-07 20:00] VITALS: BP 120/62
[2020-06-08 07:00] VITALS: BP 98/56
[2020-06-08 20:00] VITALS: BP 123/51
[2020-06-09 07:56] VITALS: BP 120/35
[2020-06-09 20:04] VITALS: BP 135/63
[2020-06-10 08:00] VITALS: BP 129/60; BP 145/80
[2020-06-10 19:30] VITALS: BP 90/48
[2020-06-11 05:08] LABS: HEMATOCRIT 32.1 % (42.0-52.0); HEMOGLOBIN 10.5 gm/dL (14.0-18.0); MCH 27.5 pg (26.0-34.0); MCHC 32.7 g/dL (28.0-37.0); MCV 83.9 fL (80.0-100.0); MPV 7.9 fl. (7.2-11.1); RBC 3.82 mil/uL (4.50-6.00); WBC 7.9 thou/uL (4.0-11.0)
[2020-06-11 05:21] LABS: PROTIME 20.1 Seconds (9.20-11.50)
[2020-06-11 05:33] LABS: ALBUMIN 3.2 g/dL (3.4-5.0); CALCIUM 8.6 mg/dL (8.5-10.1); CREATININE 8.5 mg/dL (0.6-1.3); MAGNESIUM 2.4 mg/dL (1.8-2.4); TOTAL BILIRUBIN 0.3 mg/dL (<0.1-1.0); TOTAL PROTEIN 6.5 g/dL (6.4-8.2)
[2020-06-11 08:00] VITALS: BP 125/59
[2020-06-11 20:00] VITALS: BP 115/52
[2020-06-12 08:31] VITALS: BP 134/56
[2020-06-12 13:44] LABS: INR 2.4; PROTIME 23.9 Seconds (9.20-11.50)
[2020-06-12 20:00] VITALS: BP 109/50
[2020-06-13 07:22] LABS: INR 2.3; PROTIME 22.7 Seconds (9.20-11.50)
[2020-06-13 08:00] VITALS: BP 117/54
[2020-06-13 20:00] VITALS: BP 127/57
[2020-06-14 04:04] LABS: INR 2.1; PROTIME 21.4 Seconds (9.20-11.50)
[2020-06-14 08:00] VITALS: BP 112/49
[2020-06-14 13:19] LABS: ABSOLUTE EOSINOPHILS 0.2 thou/uL (0.0-0.7); ABSOLUTE LYMPHOCYTES 0.7 thou/uL (0.8-5.3); ABSOLUTE MONOCYTES 0.7 thou/uL (0.0-1.2); ABSOLUTE NEUTROPHILS 6.9 thou/uL (1.6-8.1); BASOPHILS 0.5 %; EOSINOPHILS 1.8 %; HEMATOCRIT 29.1 % (42.0-52.0); HEMOGLOBIN 9.6 gm/dL (14.0-18.0); LYMPHOCYTES 8.7 %; MCH 27.9 pg (26.0-34.0); MCHC 33.1 g/dL (28.0-37.0); MCV 84.5 fL (80.0-100.0); MONOCYTES 8.2 %; MPV 7.4 fl. (7.2-11.1); NUCLEATED RBCS 0 /100WBC; PLATELET COUNT* 167 thou/uL (150-400); POLYS 80.8 %; RBC 3.44 mil/uL (4.50-6.00); WBC 8.5 thou/uL (4.0-11.0)
[2020-06-14 13:31] LABS: CALCIUM 8.6 mg/dL (8.5-10.1); CREATININE 10.6 mg/dL (0.6-1.3)
[2020-06-14 19:00] VITALS: BP 109/43
[2020-06-15 04:26] LABS: INR 1.9; PROTIME 19.1 Seconds (9.20-11.50)
[2020-06-15 08:00] VITALS: BP 121/56
[2020-06-15 20:04] VITALS: BP 118/52
[2020-06-16 04:06] LABS: HEMATOCRIT 28.7 % (42.0-52.0); HEMOGLOBIN 9.5 gm/dL (14.0-18.0); MCHC 33.1 g/dL (28.0-37.0); MCV 84.4 fL (80.0-100.0); MPV 7.4 fl. (7.2-11.1); RBC 3.4 mil/uL (4.50-6.00); WBC 6.8 thou/uL (4.0-11.0)
[2020-06-16 04:13] LABS: INR 1.7; PROTIME 16.9 Seconds (9.20-11.50)
[2020-06-16 04:28] LABS: ALBUMIN 2.9 g/dL (3.4-5.0); CALCIUM 8.7 mg/dL (8.5-10.1); MAGNESIUM 2.5 mg/dL (1.8-2.4); POTASSIUM 4.3 mmol/L (3.5-5.1); TOTAL BILIRUBIN 0.3 mg/dL (<0.1-1.0); TOTAL PROTEIN 6.7 g/dL (6.4-8.2)
[2020-06-16 08:00] VITALS: BP 143/51
[2020-06-16 20:03] VITALS: BP 92/44
[2020-06-17 05:55] LABS: INR 1.6; PROTIME 16.2 Seconds (9.20-11.50)
[2020-06-17 08:00] VITALS: BP 109/50
[2020-06-17 20:08] VITALS: BP 109/57
[2020-06-18 04:29] LABS: INR 1.6; PROTIME 16.2 Seconds (9.20-11.50)
[2020-06-18 07:00] VITALS: BP 99/50
[2020-06-18 20:00] VITALS: BP 101/47
[2020-06-19 03:05] LABS: HEPATITIS B SURFACE AG Negative (Negative)
[2020-06-19 05:03] LABS: INR 1.7; PROTIME 17.1 Seconds (9.20-11.50)
[2020-06-19 08:14] VITALS: BP 128/48
[2020-06-19 20:00] VITALS: BP 131/63
[2020-06-20 08:10] VITALS: BP 110/59
[2020-06-20 19:00] VITALS: BP 128/53
[2020-06-21 04:54] LABS: HEMATOCRIT 28.4 % (42.0-52.0); HEMOGLOBIN 9.3 gm/dL (14.0-18.0)
[2020-06-21 05:06] LABS: ALBUMIN 3.1 g/dL (3.4-5.0); PHOSPHORUS* 3.6 mg/dL (2.5-4.9); POTASSIUM 5.1 mmol/L (3.5-5.1)
[2020-06-21 08:00] VITALS: BP 134/49
[2020-06-21 19:50] VITALS: BP 120/73
[2020-06-22 07:30] VITALS: BP 102/66
[2020-06-22] MEDS ORDERED: BUMEX2 MG PO (14:15)
[2020-06-22] MEDS ORDERED: RENVELA800 MG PO (14:15)
[2020-06-22] MEDS ORDERED: METOPROLOL SUCC25 M1 PO (14:15)
[2020-06-22] MEDS ORDERED: LEVEMIR100 UNIT/2 SUBQ (14:15)
[2020-06-22] MEDS ORDERED: PROAIR HFA8.5 GM INH (14:15)
[2020-06-22] MEDS ORDERED: ALLOPURINOL 10100 M1 PO (14:15)
[2020-06-22] MEDS ORDERED: MYRBETRIQ25 MG PO (14:15)
[2020-06-22] MEDS ORDERED: COLACE 100 MG100 MG PO (14:15)
[2020-06-22] MEDS ORDERED: MIRALAX17 GM PO (14:15)
[2020-06-22] MEDS ORDERED: EPOGEN2000 UNIT/ IVPUSH (14:15)
[2020-06-22] MEDS ORDERED: MITIGARE0.6 MG PO (14:15)
[2020-06-22] MEDS ORDERED: WARFARIN SODIUM5 MG PO (14:15)
[2020-06-22] MEDS ORDERED: TRAMADOL 50 MG50 MG PO (14:15)
[2020-06-22] MEDS ORDERED: ANORO ELLIPTA1 EACH INH (14:15)
[2020-06-22] MEDS ORDERED: FISH OIL 1,0001 EAC1 PO (14:15)
[2020-06-22] MEDS ORDERED: LIPITOR40 MG PO (14:15)
[2020-06-22 15:33] VITALS: BP 102/66
[2020-06-22 15:59] VITALS: BP 102/66
[2020-06-22 19:00] VITALS: BP 117/56
[2020-06-23 07:52] VITALS: BP 141/63
[2020-06-23 11:49] LABS: PROTIME 26.7 Seconds (9.20-11.50)
[2020-06-23 11:51] LABS: INR 2.7
[2020-06-23 19:50] VITALS: BP 95/52
[2020-06-23 21:00] VITALS: BP 124/54
[2020-06-24] MEDS ORDERED: CHILDREN'S ASPI81 M1 PO (03:00)
[2020-06-24] MEDS ORDERED: HYDRALAZINE 2525 M1 PO (03:11)
[2020-06-24] MEDS ORDERED: BUMEX2 MG PO (03:15)
[2020-06-24] MEDS ORDERED: NEURONTIN300 MG PO (03:29)
[2020-06-24 08:00] VITALS: BP 126/73
[2020-06-24 10:11] VITALS: BP 102/66
== END 2020-06-24 10:45 | disposition home health service (06) | DRG 947 ==
LOC: M.REH 16:06
PROVIDERS: Internal Medicine; Internal Medicine Nephrology; ADMIT Physical Medicine & Rehabilitation; ATTEND Physical Medicine & Rehabilitation
PROC: 5A1D70Z Performance of Urinary Filtration, Intermittent, Less than 6 Hours Per Day (ICD-10-PCS; principal; 2020-06-03)
PROC: 5A1D70Z Performance of Urinary Filtration, Intermittent, Less than 6 Hours Per Day (ICD-10-PCS; 2020-06-04)
PROC: 5A09357 Assistance with Respiratory Ventilation, Less than 24 Consecutive Hours, Continuous Positive Airway Pressure (ICD-10-PCS; 2020-06-05)
PROC: 5A09357 Assistance with Respiratory Ventilation, Less than 24 Consecutive Hours, Continuous Positive Airway Pressure (ICD-10-PCS; 2020-06-06)
PROC: 5A1D70Z Performance of Urinary Filtration, Intermittent, Less than 6 Hours Per Day (ICD-10-PCS; 2020-06-07)
PROC: 5A09357 Assistance with Respiratory Ventilation, Less than 24 Consecutive Hours, Continuous Positive Airway Pressure (ICD-10-PCS; 2020-06-07)
PROC: 5A09357 Assistance with Respiratory Ventilation, Less than 24 Consecutive Hours, Continuous Positive Airway Pressure (ICD-10-PCS; 2020-06-08)
PROC: 5A1D70Z Performance of Urinary Filtration, Intermittent, Less than 6 Hours Per Day (ICD-10-PCS; 2020-06-09)
PROC: 5A09357 Assistance with Respiratory Ventilation, Less than 24 Consecutive Hours, Continuous Positive Airway Pressure (ICD-10-PCS; 2020-06-10)
PROC: 5A1D70Z Performance of Urinary Filtration, Intermittent, Less than 6 Hours Per Day (ICD-10-PCS; 2020-06-11)
PROC: 5A09357 Assistance with Respiratory Ventilation, Less than 24 Consecutive Hours, Continuous Positive Airway Pressure (ICD-10-PCS; 2020-06-11)
PROC: 5A09357 Assistance with Respiratory Ventilation, Less than 24 Consecutive Hours, Continuous Positive Airway Pressure (ICD-10-PCS; 2020-06-12)
PROC: 5A09357 Assistance with Respiratory Ventilation, Less than 24 Consecutive Hours, Continuous Positive Airway Pressure (ICD-10-PCS; 2020-06-13)
PROC: 5A1D70Z Performance of Urinary Filtration, Intermittent, Less than 6 Hours Per Day (ICD-10-PCS; 2020-06-14)
PROC: 5A09357 Assistance with Respiratory Ventilation, Less than 24 Consecutive Hours, Continuous Positive Airway Pressure (ICD-10-PCS; 2020-06-15)
PROC: 5A09357 Assistance with Respiratory Ventilation, Less than 24 Consecutive Hours, Continuous Positive Airway Pressure (ICD-10-PCS; 2020-06-17)
PROC: 5A1D70Z Performance of Urinary Filtration, Intermittent, Less than 6 Hours Per Day (ICD-10-PCS; 2020-06-18)
PROC: 5A09357 Assistance with Respiratory Ventilation, Less than 24 Consecutive Hours, Continuous Positive Airway Pressure (ICD-10-PCS; 2020-06-19)
PROC: 5A1D70Z Performance of Urinary Filtration, Intermittent, Less than 6 Hours Per Day (ICD-10-PCS; 2020-06-21)
PROC: 5A09357 Assistance with Respiratory Ventilation, Less than 24 Consecutive Hours, Continuous Positive Airway Pressure (ICD-10-PCS; 2020-06-21)
PROC: 5A1D70Z Performance of Urinary Filtration, Intermittent, Less than 6 Hours Per Day (ICD-10-PCS; 2020-06-23)
DX: R53.81 Other malaise (principal); I50.31 Acute diastolic (congestive) heart failure; J96.21 Acute and chronic respiratory failure with hypoxia; J96.22 Acute and chronic respiratory failure with hypercapnia; N18.6 End stage renal disease; N17.9 Acute kidney failure, unspecified; L03.115 Cellulitis of right lower limb; I48.20 Chronic atrial fibrillation, unspecified; I25.10 Atherosclerotic heart disease of native coronary artery without angina pectoris; J44.9 Chronic obstructive pulmonary disease, unspecified; I11.0 Hypertensive heart disease with heart failure; E78.5 Hyperlipidemia, unspecified; H54.62 Unqualified visual loss, left eye, normal vision right eye; M17.10 Unilateral primary osteoarthritis, unspecified knee; D64.9 Anemia, unspecified; G47.33 Obstructive sleep apnea (adult) (pediatric); N28.9 Disorder of kidney and ureter, unspecified; E11.22 Type 2 diabetes mellitus with diabetic chronic kidney disease; I95.9 Hypotension, unspecified; Z90.49 Acquired absence of other specified parts of digestive tract; Z95.1 Presence of aortocoronary bypass graft; Z79.82 Long term (current) use of aspirin; Z79.899 Other long term (current) drug therapy; Z99.2 Dependence on renal dialysis

== ENCOUNTER → 2020-08-05 | Outpatient (CLI) | payer MEDICARE ==
[~2020-08-05] MED LIST changes: +CHILDREN'S ASPI81 M1 PO; +COLACE 100 MG100 MG PO; +EPOGEN2000 UNIT/ IVPUSH; +FISH OIL 1,0001 EAC1 PO; +HYDRALAZINE 2525 M1 PO; +METOPROLOL SUCC25 M1 PO; +NEURONTIN300 MG PO; +WARFARIN SODIUM5 MG PO
== END ==
LOC: M.RAD 10:44
PROVIDERS: ATTEND Nurse Practitioner Family
DX: R07.81 Pleurodynia (principal)

== ENCOUNTER 2020-12-05 12:03 | Emergency (ER) | payer OTHER ==
[~2020-12-05] VITALS: Ht 167.6 cm; Wt 99.8 kg
[2020-12-05 12:58] LABS: ABSOLUTE EOSINOPHILS 0.1 thou/uL (0.0-0.7); ABSOLUTE MONOCYTES 0.8 thou/uL (0.0-1.2); ABSOLUTE NEUTROPHILS 5.9 thou/uL (1.6-8.1); BASOPHILS 0.6 %; HEMATOCRIT 38.7 % (42.0-52.0); LYMPHOCYTES 12.7 %; MCH 33.7 pg (26.0-34.0); MCHC 33.6 g/dL (28.0-37.0); MCV 100.3 fL (80.0-100.0); MONOCYTES 9.7 %; MPV 8.1 fl. (7.2-11.1); NUCLEATED RBCS 0 /100WBC; PLATELET COUNT* 153 thou/uL (150-400); RBC 3.86 mil/uL (4.50-6.00); RDW-CV 16.5 % (10.5-14.5); WBC 7.8 thou/uL (4.0-11.0)
[2020-12-05 13:04] LABS: CALCIUM 9.5 mg/dL (8.5-10.1); CREATININE 5.2 mg/dL (0.6-1.3); POTASSIUM 3.9 mmol/L (3.5-5.1)
[2020-12-05 13:09] LABS: ALBUMIN 3.9 g/dL (3.4-5.0); TOTAL BILIRUBIN 0.6 mg/dL (<0.1-1.0); TOTAL PROTEIN 9.3 g/dL (6.4-8.2)
[2020-12-05 13:29] LABS: APTT 40.5 Seconds (25.0-31.3); INR 2.3; PROTIME 23.3 Seconds (9.20-11.50)
[2020-12-05] MEDS ORDERED: HYDROCODON-ACE1 EAC7 PO (14:22)
[2020-12-05] MEDS ORDERED: WARFARIN SODIUM4 MG PO (14:28)
[2020-12-05] MEDS ORDERED: PROAIR HFA8.5 GM INH (14:29)
[2020-12-05] MEDS ORDERED: RENAL-VITE TAB0.8 MG PO (14:32)
[2020-12-05 15:42] VITALS: BP 142/65
== END 2020-12-05 15:42 | disposition home or self-care (01) ==
LOC: M.ERS 12:03
PROVIDERS: Nurse Practitioner Family
DX: I71.4 Abdominal aortic aneurysm, without rupture (principal); R36.9 Urethral discharge, unspecified; J44.9 Chronic obstructive pulmonary disease, unspecified; I48.91 Unspecified atrial fibrillation; G47.30 Sleep apnea, unspecified; E78.00 Pure hypercholesterolemia, unspecified; I13.2 Hypertensive heart and chronic kidney disease with heart failure and with stage 5 chronic kidney disease, or end stage renal disease; E11.22 Type 2 diabetes mellitus with diabetic chronic kidney disease; N18.6 End stage renal disease; I50.9 Heart failure, unspecified; Z99.2 Dependence on renal dialysis; Z88.5 Allergy status to narcotic agent; Z88.8 Allergy status to other drugs, medicaments and biological substances; Z87.891 Personal history of nicotine dependence; Z90.89 Acquired absence of other organs